=== PATIENT | male | born 1955 | race Caucasian/White ===

== ENCOUNTER 2018-05-04 06:45 | Emergency (ER) | payer BC ==
[~2018-05-04] VITALS: Ht 172.7 cm; Wt 77.1 kg
[~2018-05-04 06:45] MED LIST: HYDR-4226 PO; IBUP-1773 PO; TAMS0.4C98 PO
[2018-05-04] MEDS ORDERED: LACTATED RINGERS 1,000 ML IV ONE (07:05)
[2018-05-04] MEDS ORDERED: KETOROLAC 30 MG/ML VIAL IVP STA (07:05)
[2018-05-04] MEDS ORDERED: ONDANSETRON 4 MG/2 ML (SDV) Z0FRAN IVP ONE ×2 (07:15→09:00)
--- NOTE | 2018-05-04 07:23 | ED GU-Male ---
General Chief Complaint: Abdominal/GI Problems Stated Complaint: POSSIBLE KIDNEY STONE Nursing Triage Note: PT STATES HE BEGAN TO DEVELOPE FLANK PAIN THAT BEGAN THIS AM AT 0530. PT STATES THIS FEELS LIKE A KIDNEY STONE HE HAD A YEAR AGO. PAIN VERBALIZED IN THE RIGHT FLANK. Source: patient History of Present Illness Date Seen by Provider: May 04, 2018 Time Seen by Provider: 07:05 Initial Comments PT ARRIVES VIA POV FROM HOME C/O "KIDNEY STONE ON THE RIGHT" STATES PAIN BEGAN AROUND 0530 THIS AM, AFTER WAKING C/O NAUSEA, NO VOMITING HAVING SOME DIFFICULTY URINATING THIS MORNING PT HAS HAD KIDNEY STONES IN THE PAST, LAST ONE WAS A YEAR AGO. HAS PASSED PREVIOUS STONES ON HIS OWN AND HAS NEVER BEEN TO UROLOGIST. PCP: NONE Allergies and Home Medications Allergies Coded Allergies: Kahlil Known Allergies (Unverified Allergy, Mild, 11/19/09) Home Medications Hydrocodone/Acetaminophen 1 Each Tablet, 1 EACH PO Q4H PRN for PAIN Prescribed by: MARINA WILKINS on 03/26/16 1223 Hydrocodone/Ibuprofen 1 Each Tablet, 1 EACH PO Q4H Prescribed by: NILESH JUAREZ on 05/04/18 0807 Ibuprofen 600 Mg Tablet, 600 MG PO Q6H PRN for PAIN Prescribed by: MARINA WILKINS on 03/26/16 1223 Nitrofurantoin Monohyd/M-Cryst 100 Mg Capsule, 100 MG PO BID Prescribed by: NILESH JUAREZ on 05/04/18 0807 Ondansetron 4 Mg Tab.rapdis, 4 MG PO Q4H Prescribed by: NILESH JUAREZ on 05/04/18 0807 Tamsulosin HCl 0.4 Mg Cap, 0.4 MG PO DAILY Prescribed by: MARINA WILKINS on 03/26/16 1223 Tamsulosin HCl 0.4 Mg Cap, 0.4 MG PO DAILY Prescribed by: NILESH JUAREZ on 05/04/18 0807 Review of Systems Review of Systems Constitutional: no symptoms reported Respiratory: no symptoms reported Cardiovascular: no symptoms reported Gastrointestinal: see HPI, abdominal pain, nausea Genitourinary: see HPI, flank pain, urgency Musculoskeletal: see HPI, back pain Skin: no symptoms reported Psychiatric/Neurological: No Symptoms Reported Endocrine: No Symptoms Reported Hematologic/Lymphatic: No Symptoms Reported Past Dwoelvr-Zqunmj-Qksavd Hx Patient Social History Alcohol Use: Denies Use Recreational Drug Use: No Smoking Status: Never a Smoker Recent Foreign Travel: No Contact w/Someone Who Travel: No Recent Infectious Disease Expo: No Past Medical History Surgeries: Yes Adenoidectomy, Tonsillectomy Respiratory: No Cardiac: No Neurological: No Genitourinary: Yes Kidney Stones Gastrointestinal: No Musculoskeletal: No Endocrine: No HEENT: No Cancer: No Psychosocial: No Integumentary: No Blood Disorders: No Physical Exam Vital Signs Vital Signs - First Documented 05/04/18 07:02 Temp 98.2 Pulse 84 Resp 20 B/P (MAP) 141/115 (124) Pulse Ox 98 O2 Delivery Room Air Capillary Refill : Less Than 3 Seconds Height, Weight, BMI Height: 5'8.00" Weight: 170lbs. oz. 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, no motor/sensory deficits, alert, normal mood/affect, oriented x 3 Skin: normal color, warm/dry; No rash Progress/Results/Core Measures Suspected Sepsis Recent Fever Within 48 Hours: No Infection Criteria Present: None New/Unexplained Altered Menta: No Sepsis Screen: No Definite Risk SIRS Temperature:98.2 Pulse: 84 Respiratory Rate: 20 Laboratory Tests 05/04/18 07:21: White Blood Count 4.8 Blood Pressure 141 /115 Mean: 124 Laboratory Tests 05/04/18 07:21: Creatinine 1.05, Platelet Count 329, Total Bilirubin 0.8 Results/Orders Lab Results Laboratory Tests Test 05/04/18 07:21 05/04/18 08:27 Range/Units White Blood Count 4.8 4.3-11.0 10^3/uL Red Blood Count 5.44 4.35-5.85 10^6/uL Hemoglobin 16.3 13.3-17.7 G/DL Hematocrit 47 40-54 % Mean Corpuscular Volume 87 80-99 FL Mean Corpuscular Hemoglobin 30 25-34 PG Mean Corpuscular Hemoglobin Concent 35 32-36 G/DL Red Cell Distribution Width 14.6 H 10.0-14.5 % Platelet Count 329 130-400 10^3/uL Mean Platelet Volume 8.5 7.4-10.4 FL Neutrophils (%) (Auto) 74 42-75 % Lymphocytes (%) (Auto) 19 12-44 % Monocytes (%) (Auto) 6 0-12 % Eosinophils (%) (Auto) 1 0-10 % Basophils (%) (Auto) 0 0-10 % Neutrophils # (Auto) 3.5 1.8-7.8 X 10^3 Lymphocytes # (Auto) 0.9 L 1.0-4.0 X 10^3 Monocytes # (Auto) 0.3 0.0-1.0 X 10^3 Eosinophils # (Auto) 0.0 0.0-0.3 10^3/uL Basophils # (Auto) 0.0 0.0-0.1 10^3/uL Sodium Level 141 135-145 MMOL/L Potassium Level 3.8 3.6-5.0 MMOL/L Chloride Level 107 98-107 MMOL/L Carbon Dioxide Level 20 L 21-32 MMOL/L Anion Gap 14 5-14 MMOL/L Blood Urea Nitrogen 14 7-18 MG/DL Creatinine 1.05 0.60-1.30 MG/DL Estimat Glomerular Filtration Rate > 60 BUN/Creatinine Ratio 13 Glucose Level 109 H 70-105 MG/DL Calcium Level 9.7 8.5-10.1 MG/DL Corrected Calcium 9.5 8.5-10.1 MG/DL Total Bilirubin 0.8 0.1-1.0 MG/DL Aspartate Amino Transf (AST/SGOT) 16 5-34 U/L Alanine Aminotransferase (ALT/SGPT) 18 0-55 U/L Alkaline Phosphatase 84 40-136 U/L Total Protein 7.6 6.4-8.2 GM/DL Albumin 4.3 3.2-4.5 GM/DL Amylase Level 111 25-125 U/L Lipase 62 8-78 U/L Urine Color YELLOW Urine Clarity CLEAR Urine pH 7 5-9 Urine Specific Mckinney 1.015 L 1.016-1.022 Urine Protein 1+ H NEGATIVE Urine Glucose (UA) 2+ H NEGATIVE Urine Ketones NEGATIVE NEGATIVE Urine Nitrite NEGATIVE NEGATIVE Urine Bilirubin NEGATIVE NEGATIVE Urine Urobilinogen NORMAL NORMAL MG/DL Urine Leukocyte Esterase NEGATIVE NEGATIVE Urine RBC (Auto) 5+ H NEGATIVE Urine RBC 25-50 H /HPF Urine WBC NONE /HPF Urine Squamous Epithelial Cells RARE /HPF Urine Crystals NONE /LPF Urine Bacteria NEGATIVE /HPF Urine Casts NONE /LPF Urine Mucus NEGATIVE /LPF Urine Culture Indicated NO My Orders Orders - NILESH JUAREZ DO Ct Abd/Pelvis Wo(Kidney Stone) (05/04/18 07:05) Amylase (05/04/18 07:05) Cbc With Automated Diff (05/04/18 07:05) Comprehensive Metabolic Panel (05/04/18 07:05) Lipase (05/04/18 07:05) Ua Culture If Indicated (05/04/18 07:05) Acute Abd Series (05/04/18 07:05) Saline Lock/Iv-Start (05/04/18 07:05) Lactated Ringers (Lr 1000 Ml Iv Solution (05/04/18 07:05) Ketorolac Injection (Toradol Injection) (05/04/18 07:05) Ondansetron Injection (Zofran Injectio (05/04/18 07:15) Morphine Injection (Morphine Injection (05/04/18 08:03) Alfuzosin (Not Stocked) (Uroxatral (Not (05/04/18 08:15) Ondansetron Injection (Zofran Injectio (05/04/18 09:00) Medications Given in ED Current Medications Medications Dose Ordered Sig/Lina Route Start Time Stop Time Status Last Admin Dose Admin Lactated Ringer's 1,000 ml @ 0 mls/hr Q0M ONCE IV 05/04/18 07:05 05/04/18 07:07 DC 05/04/18 07:29 1,000 MLS/HR Ondansetron HCl 8 mg ONCE ONCE IVP 05/04/18 07:15 05/04/18 07:16 DC 05/04/18 07:29 8 MG Vital Signs/I&O 05/04/18 07:02 Temp 98.2 Pulse 84 Resp 20 B/P (MAP) 141/115 (124) Pulse Ox 98 O2 Delivery Room Air Capillary Refill : Less Than 3 Seconds Blood Pressure Mean: [address] ABDOMEN/PELVIS--5 MM RIGHT MID URETER STONE WITH HYDRONEPHROSIS. CHRONIC CHANGES TO SIGMOID COLON DUE TO DIVERTICULAR DISEASE WITHOUT ACUTE DIVERTICULITIS. PER RADIOLOGIST REPORT @ 0755 ACUTE ABDOMEN XRAYS--5 MM CALCIFICATION AT LEVEL OF RIGHT SACRAL ALA. SPLENIC ARTERY CALCIFICATION--PER RADIOLOGIST REPORT @ 0805 Reviewed: Reviewed by Me Departure Impression Primary Impression: Right ureteral calculus Disposition: HOME, SELF-CARE Condition: Improved Departure-Patient Inst. Referrals: NO,LOCAL PHYSICIAN (PCP) Primary Care Physician DILCIA ROSAS MD Patient Instructions: Kidney Stones (DC) Add. Discharge Instructions: LOTS OF CLEAR LIQUIDS STRAIN ALL URINE--RETURN ANY STONES TO UROLOGIST OFFICE FOLLOW UP WITH DR. ROSAS THIS WEEK--CALL TODAY FOR APPOINTMENT All discharge instructions reviewed with patient and/or family. Voiced understanding. Scripts Ondansetron (Zofran Odt) 4 Mg Tab.rapdis 4 MG PO Q4H for Nausea/Vomiting, #10 TAB Prov: NILESH JUAREZ DO 05/04/18 Hydrocodone/Ibuprofen (Hydrocodone-Ibuprofen 7.5-200) 1 Each Tablet 1 EACH PO Q4H for Pain MDD 6, #20 TAB Prov: NILESH JUAREZ DO 05/04/18 Nitrofurantoin Monohyd/M-Cryst (Macrobid 100 mg Capsule) 100 Mg Capsule 100 MG PO BID, #20 CAP Prov: ANDRÉS JUAREZA K DO 05/04/18 Tamsulosin HCl (Flomax) 0.4 Mg Cap 0.4 MG PO DAILY, #10 CAP Prov: NILESH JUAREZ DO 05/04/18 NILESH JUAREZ DO May 04, 2018 07:23
[2018-05-04 07:43] LABS: BASOPHILS % (AUTO) 0 % (0-10); EOSINOPHILS % (AUTO) 1 % (0-10); HEMATOCRIT 47 % (40-54); HEMOGLOBIN 16.3 G/DL (13.3-17.7); LYMPHOCYTES # (AUTO) 0.9 X 10^3 (1.0-4.0); LYMPHOCYTES % (AUTO) 19 % (12-44); MEAN CORPUSCULAR HEMOGLOBIN 30 PG (25-34); MEAN CORPUSCULAR HGB CONC 35 G/DL (32-36); MEAN CORPUSCULAR VOLUME 87 FL (80-99); MEAN PLATELET VOLUME 8.5 FL (7.4-10.4); MONOCYTES # (AUTO) 0.3 X 10^3 (0.0-1.0); MONOCYTES % (AUTO) 6 % (0-12); NEUTROPHILS # (AUTO) 3.5 X 10^3 (1.8-7.8); NEUTROPHILS % (AUTO) 74 % (42-75); PLATELET COUNT 329 10^3/uL (130-400); RED BLOOD COUNT 5.44 10^6/uL (4.35-5.85); RED CELL DISTRIBUTION WIDTH 14.6 % (10.0-14.5); WHITE BLOOD COUNT 4.8 10^3/uL (4.3-11.0)
--- NOTE | 2018-05-04 07:51 | Diagnostic Imaging Report ---
PROCEDURE: CT urinary tract, rule out kidney stone. TECHNIQUE: Multiple contiguous axial images were obtained through the abdomen and pelvis without the use of intravenous contrast. INDICATION: Right flank pain. Comparison with 03/26/2016. FINDINGS: The lung bases are clear. Liver appears normal. Gallbladder and bile ducts are normal. Pancreas and spleen are normal. There is a calcification measuring 2.3 cm in the hilum of the spleen consistent with chronic splenic artery aneurysm. Adrenal glands are normal. The kidneys show hydronephrosis on the right. There is obstructing stone in the mid right ureter measuring approximately 5 mm. No other calculi are seen. Left collecting system is normal. Bladder is not distended. The prostate is not enlarged. Bowel gas pattern appears normal. There is no evidence of appendicitis or diverticulitis. There are multiple diverticula scattered throughout the colon. There is thickening of the sigmoid colon bowel wall consistent with chronic diverticular disease. No evidence of intra-abdominal adenopathy of pathologic size. No free air or free fluid. IMPRESSION: 1. Obstructive uropathy due to a 5 mm stone in the mid right ureter. 2. Finding consistent with chronic diverticulosis of sigmoid colon without evidence of acute diverticulitis. 3. Finding consistent with chronic splenic artery aneurysm measuring 2.3 cm. Dictated by: Dictated on workstation # [id number]
[2018-05-04] MEDS ORDERED: morphine INJ 10 MG/ML 1ML (SYR OR VIAL) IVP STA (08:03)
--- NOTE | 2018-05-04 08:03 | Diagnostic Imaging Report ---
INDICATION: Right flank pain. COMPARISON: 03/26/2016. FINDINGS: PA chest shows the lungs to be well-aerated and clear. There is no evidence of free air under the diaphragm. Bowel gas pattern appears normal without obstruction or evidence of constipation. There is calcification in left upper quadrant overlying the spleen consistent with splenic artery aneurysm measuring 2.3 cm. There is a 5 mm calcification overlying the proximal right sacral ala likely representing obstructing ureteral stone. There are several calcifications in the pelvis felt to represent phleboliths. IMPRESSION: 1. Probable ureteral calculus distal right ureter measuring 5 mm overlying the proximal right sacral ala. 2. Calcification overlying the spleen consistent with splenic artery aneurysm. Dictated by: Dictated on workstation # [id number]
[2018-05-04 08:05] LABS: BUN/CREATININE RATIO 13; CARBON DIOXIDE 20 MMOL/L (21-32); CHLORIDE 107 MMOL/L (98-107); CREATININE SERUM 1.05 MG/DL (0.60-1.30); POTASSIUM 3.8 MMOL/L (3.6-5.0); SODIUM 141 MMOL/L (135-145)
[2018-05-04 08:06] LABS: ALANINE AMINOTRANSFERASE 18 U/L (0-55); ALBUMIN 4.3 GM/DL (3.2-4.5); ALKALINE PHOSPHATASE 84 U/L (40-136); AMYLASE 111 U/L (25-125); BILIRUBIN,TOTAL 0.8 MG/DL (0.1-1.0); CALCIUM 9.7 MG/DL (8.5-10.1); GFR ESTIMATED > 60; GLUCOSE 109 MG/DL (70-105); LIPASE 62 U/L (8-78); TOTAL PROTEIN 7.6 GM/DL (6.4-8.2)
[2018-05-04] MEDS ORDERED: TAMS0.4C98 PO (08:07)
[2018-05-04] MEDS ORDERED: NITR-65 PO (08:07)
[2018-05-04] MEDS ORDERED: ONDA4TAB8 PO (08:07)
[2018-05-04] MEDS ORDERED: HYDR-87 PO (08:07)
[2018-05-04] MEDS ORDERED: ALFUZOSIN HCL 10 MG TAB (UROXATRAL) PO SCH (08:15)
[2018-05-04 08:37] LABS: BILIRUBIN,URINE NEGATIVE (NEGATIVE); CLARITY,URINE CLEAR; COLOR,URINE YELLOW; GLUCOSE, URINE (UA) 2+ (NEGATIVE); KETONES,URINE NEGATIVE (NEGATIVE); LEUKOCYTE ESTERASE ,URINE NEGATIVE (NEGATIVE); NITRITE,URINE NEGATIVE (NEGATIVE); PH,URINE 7 (5-9); PROTEIN,URINE 1+ (NEGATIVE); UROBILINOGEN,URINE NORMAL (NORMAL)
[2018-05-04 08:47] LABS: BACTERIA,URINE NEGATIVE /HPF; RBC,URINE 25-50 /HPF; SQUAMOUS EPITHELIAL CELL,UR RARE /HPF
[2018-05-04] MEDS ORDERED: VANCOMYCIN INJECTION 1,000 MG in NS (IVPB) 250 ML IV ONE (09:30)
[2018-05-04] MEDS ORDERED: TAMSULOSIN 0.4 MG (FLOMAX) CAP PO ONE (09:45)
[2018-05-04 10:11] VITALS: BP 164/103
== END 2018-05-04 10:11 | disposition home or self-care (01) ==
LOC: EDUNIT# 06:45 → ER 06:46
DX: N13.2 Hydronephrosis with renal and ureteral calculous obstruction (principal); Z90.89 Acquired absence of other organs
CPT/HCPCS: 36415; 74022; 74176; 80053; 81000; 82150; 83690; 85025

== ENCOUNTER → 2018-05-05 | Outpatient (CLI) | payer BC ==
[~2018-05-05] MED LIST changes: +HYDR-87 PO; +NITR-65 PO; +ONDA4TAB8 PO
--- NOTE | 2018-05-05 13:26 | Diagnostic Imaging Report ---
INDICATION: Right ureteral stone. TIME OF EXAM: 12:31 p.m. Correlation is made with prior study one day earlier. Previously noted 5 mm calculus overlying the right sacral ala appears to have progressed more distally in the right ureter and appears to be in the region of the distal right ureter just proximal to the UVJ. No other urinary tract calculi are seen. IMPRESSION: Progression of right ureteral calculus which now appears to be located just above the UVJ. Dictated by: Dictated on workstation # [id number]
== END ==
LOC: RAD 11:57
PROVIDERS: ATTEND Urology
DX: N20.1 Calculus of ureter (principal)
CPT/HCPCS: 74018

== ENCOUNTER 2018-05-06 05:56 | Outpatient (CLI) | payer BC ==
[~2018-05-06] VITALS: Ht 172.7 cm; Wt 77.1 kg
== END 2018-05-06 09:14 | disposition home or self-care (01) ==
LOC: PREOP 05:56
PROVIDERS: ATTEND Urology
DX: Z01.818 Encounter for other preprocedural examination (principal)